=== PATIENT | male | born 1985 | race Caucasian/White ===

== ENCOUNTER 2020-06-05 17:53 | Emergency (ER) | payer OTHER ==
[~2020-06-05] VITALS: Ht 170.2 cm; Wt 104.3 kg
[2020-06-05 17:57] VITALS: BP 151/91
--- NOTE | 2020-06-05 18:04 | NUR ---
34 y/o male biba from home c/o sudden onset, non radiating chest pain x 1.5 hrs prior to arrival. Denies SOB. Pt denies N/V. 3/10 pressure to chest at this time. Positioned for comfort, VSS. Placed on bedside monitor.
--- NOTE | 2020-06-05 18:25 | NUR ---
Dr Daniel at bedside examining pt
--- NOTE | 2020-06-05 18:35 | NUR ---
X-Ray at bedside.
--- NOTE | 2020-06-05 18:42 | NUR ---
Lab at bedside for blood draw.
[2020-06-05 18:45] LABS: BASOPHILS % (AUTO) 0.5 % (0.0-2.0); EOSINOPHILS # (AUTO) 0.1 K/uL (0-0.4); EOSINOPHILS % (AUTO) 0.9 % (0.0-4.0); HEMATOCRIT 40.3 % (36-52); HEMOGLOBIN 14.2 g/dL (12.0-18.0); LYMPHOCYTES % (AUTO) 12.5 % (20.5-51.1); MEAN CORPUSCULAR HEMOGLOBIN 32 pg (27-31); MEAN CORPUSCULAR HGB CONC 35 g/dL (33-37); MONOCYTES # (AUTO) 0.4 K/uL (0.8-1.0); MONOCYTES % (AUTO) 4.4 % (1.7-9.3); NEUTROPHILS # (AUTO) 6.7 K/uL (1.8-7.7); NEUTROPHILS % (AUTO) 81.7 % (42.2-75.2); PLATELET COUNT (AUTO) 221 K/uL (140-450); RED BLOOD CELL COUNT(AUTO) 4.38 MIL/uL (4.20-6.10); RED CELL DISTRIBUTION WIDTH 13.6 % (11.6-13.7); WHITE BLOOD COUNT (AUTO) 8.2 K/uL (4.8-10.8)
[2020-06-05 18:57] LABS: ALBUMIN 4.4 g/dL (3.4-5.0); ANION GAP 17.5 (8-16); CARBON DIOXIDE 23.8 mmol/L (21-32); POTASSIUM 3.3 mmol/L (3.5-5.1); TOTAL BILIRUBIN 0.5 mg/dL (0.0-1.0)
--- NOTE | 2020-06-05 19:09 | NUR ---
Report given to ANY Perez. Transfer of care at this time
--- NOTE | 2020-06-05 19:12 | NUR ---
REPORT RECEIVED FROM ANY MENJIVAR FOR CONTINUATION OF CARE.
[2020-06-05 20:02] VITALS: BP 147/85
--- NOTE | 2020-06-05 20:02 | NUR ---
Patient discharged with v/s stable. Written and verbal after care instructions given and explained. Patient verbalized understanding. Ambulatory with steady gait. All questions addressed prior to discharge. Advised to follow up with PMD.
== END 2020-06-05 20:02 | disposition home or self-care (01) ==
LOC: MED 17:53
DX: R07.9 Chest pain, unspecified (principal); F41.0 Panic disorder [episodic paroxysmal anxiety]
CPT/HCPCS: 36415; 71045; 80053; 84484; 85025; 93005; 99285; Q0092